=== PATIENT | male | born 2000 | race African-American/Black ===

== ENCOUNTER 2024-02-20 11:39 | Emergency (ER) | payer OTHER ==
[~2024-02-20] VITALS: Ht 180.3 cm; Wt 66.0 kg
[2024-02-20 11:44] VITALS: O2SAT 100
[2024-02-20] MEDS ORDERED: IBUP-2029 MT (13:53)
[2024-02-20] MEDS ORDERED: TOPUD MT (13:53)
[2024-02-20 14:12] VITALS: BP 115/68; PULSE 84; RESP 16; TEMP 36.78072; O2SAT 100
== END 2024-02-20 14:18 | disposition home or self-care (01) ==
LOC: ER 11:39
DX: S61.212A Laceration without foreign body of right middle finger without damage to nail, initial encounter (principal); S61.215A Laceration without foreign body of left ring finger without damage to nail, initial encounter; W26.9XXA Contact with unspecified sharp object(s), initial encounter; Y93.89 Activity, other specified; Y92.89 Other specified places as the place of occurrence of the external cause; Y99.8 Other external cause status
CPT/HCPCS: 12002; 99283; Z7610 ×2; 12001